=== PATIENT | male | born 1965 | race Caucasian/White ===

== ENCOUNTER 2017-04-15 01:37 | Outpatient (CLI) | payer OTHER, MEDICARE | END 2017-04-15 01:38 | disposition EMS.NT | LOC: EMS 01:37 | PROVIDERS: ATTEND Surgery | DX: R46.89 Other symptoms and signs involving appearance and behavior (principal) ==

== ENCOUNTER 2017-04-15 02:26 | Emergency (ER) | payer OTHER, MEDICARE ==
--- NOTE | 2017-04-15 02:37 | ED Physician Documentation ---
PD HPI MHE - Stated complaint Stated Complaint: MHE - History obtained from History obtained from: Patient, Police - History of Present Illness Primary symptom: Manic, Aggressive behavior Timing - onset: Today Contributing factors: Off meds Similar symptoms before: Work up / diagnostics, Treatment - Additional information Additional information: Patient is a 51 year old male brought in by police for agitation and altered mental status. According to police the patient and his are going through a divorce. The has been staying with a friend. When the came back today she said the patient was acting like a mad man. said she was worried and called the police. stated that the patient hasn't slept since new years. Patient reports that he was sleeping, taking a nap and then the police were called to his house. Upon initial evaluation in the emergency department patient is awake, alert and oriented. patient denies any suicidal or homicidal ideation. Patient is cooperative. Review of Systems Constitutional: denies: Fever, Chills Eyes: reports: Reviewed and negative Ears: reports: Reviewed and negative Nose: denies: Rhinorrhea / runny nose, Foreign Body Throat: denies: Sore throat Cardiac: denies: Chest pain / pressure, Palpitations Respiratory: reports: Cough GI: denies: Abdominal Pain, Nausea, Vomiting Neurologic: denies: Generalized weakness, Focal weakness, Numbness Psychiatric: denies: Depressed, Suicidal, Homicidal, Delusions PD PAST MEDICAL HISTORY - Past Medical History Cardiovascular: Hypertension Endocrine/Autoimmune: Type 2 diabetes Psych: ADD/ADHD - Past Surgical History Past Surgical History: Yes General: Cholecystectomy, Appendectomy - Present Medications Home Medications: Ambulatory Orders Medication Instructions Recorded Confirmed Furosemide [Lasix] 20 mg PO 12/07/12 12/07/12 Furosemide [Lasix] 20 mg PO DAILY #10 tablet 12/07/12 Indomethacin 25 mg PO 12/07/12 12/07/12 Insulin Aspart [Novolog] 15 unit SQ TIDACHS 12/07/12 12/07/12 Insulin Glargine,Hum.rec.anlog 75 unit SQ BID 12/07/12 12/07/12 [Lantus] Losartan [Cozaar] 25 mg PO 12/07/12 12/07/12 Methylphenidate [Daytrana] 1 each TD 12/07/12 12/07/12 Omeprazole [Prilosec] 40 mg PO 12/07/12 12/07/12 Potassium Chloride 10 meq PO DAILY #10 capsule.er 12/07/12 diltiaZEM [Cardizem] 30 mg PO ONCE 12/07/12 12/07/12 metFORMIN [Glucophage] 1,000 mg PO BID 12/07/12 12/07/12 - Allergies Allergies/Adverse Reactions: Allergies Allergy/AdvReac Type Severity Reaction Status Date / Time codeine [Codeine] Allergy Nausea Verified 04/15/17 02:42 - Social History Does the pt smoke?: No Smoking Status: Never smoker Does the pt drink ETOH?: Yes Does the pt have substance abuse?: No PD ED PE NORMAL - Vitals Vital signs reviewed: Yes - General General: Alert and oriented X 3 - HEENT HEENT: Atraumatic, PERRL - Neck Neck: Supple, no meningeal sign, No JVD - Cardiac Cardiac: RRR, No murmur - Abdomen Abdomen: Other (obese) - Neuro Neuro: Alert and oriented X 3, No motor deficit, No sensory deficit, Normal speech PD ED PE EXPANDED - HEENT HEENT: Dry mucous membranes - Psych Psych: No: Depressed, Suicidal, Homicidal, Tearful, Combative, Manic, Pressured speech Results - Vitals Vitals: Vital Signs - 24 hr 04/15/17 02:29 Temperature 35.7 C L Heart Rate 106 H Respiratory 18 Rate Blood Pressure 191/106 H O2 Saturation 97 Oxygen O2 Source Room air - Labs Labs: Laboratory Tests 04/15/17 04/15/17 04/15/17 02:51 02:51 02:51 WBC 15.7 H RBC 4.69 L Hgb 12.4 L Hct 37.6 L MCV 80.2 MCH 26.5 L MCHC 33.1 RDW 14.9 Plt Count 261 MPV 9.4 Neut # 12.3 H Lymph # 2.1 [place] # 1.0 Eos # 0.1 Baso # 0.1 Absolute Nucleated RBC 0.00 Nucleated RBC % 0.0 Sodium 133 L Potassium 3.5 Chloride 101 Carbon Dioxide 19 L Anion Gap 13.0 BUN 15 Creatinine 1.0 Estimated GFR (MDRD) 79 L Glucose 193 H Calcium 8.8 Total Bilirubin 0.9 AST 121 H ALT 48 Alkaline Phosphatase 86 Total Protein 8.2 Albumin 4.2 Globulin 4.0 Albumin/Globulin Ratio 1.1 Lipase 14 L TSH 1.38 Ethyl Alcohol < 5.0 PD MEDICAL DECISION MAKING - ED course Complexity details: reviewed old records, reviewed results, re-evaluated patient , considered differential, d/w patient ED course: Patient was seen and examined at bedside. Patient was awake, alert and oriented. patient denied any suicidal or homicidal ideation. Patient's labs were drawn. Patient fell asleep easily and was observed over night. In the morning patient continued to deny any suicidal or homicidal ideation. He was awake, alert and oriented and showed no signs of reina. Patient had no reason to be held and patient was stable for discharge with outpatient follow up. Departure - Departure Disposition: 01 Home, Self Care Clinical Impression: Psychiatric symptoms Condition: Stable Instructions: ED Stress React Follow-Up: primary,care provider [Other] - Tomorrow Comments: Your diagnostics today were within normal limits. Your symptoms are likely in part due to the extra stress in your life. It is important that you contact your doctor today and go to your appointment on the . You may return to the emergency department at any time for new, worsening or uncontrollable symptoms.
[2017-04-15 02:59] LABS: BASOPHILS # (AUTO) 0.1 10^3/uL (0.0-0.1); BASOPHILS % (AUTO) 0.6 %; EOSINOPHILS # (AUTO) 0.1 10^3/uL (0.0-0.7); EOSINOPHILS % (AUTO) 0.9 %; HGB - HEMOGLOBIN 12.4 g/dL (14.0-18.0); LYMPHOCYTES # (AUTO) 2.1 10^3/uL (1.5-3.5); LYMPHOCYTES % (AUTO) 13.1 %; MEAN CORPUSCULAR HEMOGLOBIN 26.5 pg (27.0-31.0); MEAN CORPUSCULAR HGB CONC 33.1 g/dL (32.0-36.0); MEAN CORPUSCULAR VOLUME 80.2 fL (80.0-94.0); MEAN PLATELET VOLUME 9.4 fL (7.4-11.4); MONOCYTES % (AUTO) 6.5 %; NEUTROPHILS # (AUTO) 12.3 10^3/uL (1.5-6.6); NEUTROPHILS % (AUTO) 78.9 %; PLT - PLATELET COUNT 261 10^3/uL (130-450); RED BLOOD COUNT 4.69 10^6/uL (4.70-6.10); RED CELL DISTRIBUTION WIDTH 14.9 % (12.0-15.0); WHITE BLOOD COUNT 15.7 x10^3/uL (4.8-10.8)
[2017-04-15 03:09] LABS: ALBUMIN 4.2 g/dL (3.2-5.5); ALBUMIN/GLOBULIN RATIO 1.1 (1.0-2.2); ALKALINE PHOSPHATASE 86 IU/L (42-121); ALT ALANINE AMINOTRANSFERASE 48 IU/L (10-60); AST ASPARTATE AMINOTRANSFERASE 121 IU/L (10-42); BILIRUBIN,TOTAL 0.9 mg/dL (0.2-1.0); BUN - BLOOD UREA NITROGEN 15 mg/dL (6-20); CALCIUM 8.8 mg/dL (8.5-10.3); CARBON DIOXIDE - CO2 19 mmol/L (21-32); CHLORIDE 101 mmol/L (101-111); GFR - MDRD 79 (>89); GLUCOSE 193 mg/dL (70-100); LIPASE 14 U/L (22-51); SODIUM 133 mmol/L (135-145); TOTAL PROTEIN 8.2 g/dL (6.7-8.2)
[2017-04-15 06:32] VITALS: BP 167/89
== END 2017-04-15 06:32 | disposition home or self-care (01) ==
LOC: ED 02:26
DX: F99 Mental disorder, not otherwise specified (principal); R45.1 Restlessness and agitation; R41.82 Altered mental status, unspecified; I10 Essential (primary) hypertension; E11.9 Type 2 diabetes mellitus without complications; Z79.4 Long term (current) use of insulin
CPT/HCPCS: 36415; 80053; 80320; 83690; 84443; 85025; 99283

== ENCOUNTER 2017-06-14 15:10 | Emergency (ER) | payer MEDICARE, OTHER ==
--- NOTE | 2017-06-14 15:29 | ED Physician Documentation ---
History of Present Illness - Stated complaint Stated Complaint: L SIDE PX - Chief complaint Chief Complaint: Abd Pain - History obtained from History obtained from: Patient - History of Present Illness Timing: Today Pain level max: 10 Pain level now: 10 Improved by: nothing Worsened by: nothing - Additonal information Additional information: L sided abd pain radiating to the groin. Feels similar to past stones. Has not taken anything for pain. No fever. No vomiting. States has a kidney stone every few years. Review of Systems Ten Systems: 10 systems reviewed and negative Constitutional: denies: Fever, Chills Cardiac: denies: Chest pain / pressure Respiratory: denies: Cough GI: reports: Nausea. denies: Vomiting, Diarrhea Skin: denies: Rash Musculoskeletal: denies: Neck pain Neurologic: denies: Headache PD PAST MEDICAL HISTORY - Past Medical History Past Medical History: Yes Cardiovascular: Hypertension Endocrine/Autoimmune: Type 2 diabetes Psych: ADD/ADHD - Past Surgical History Past Surgical History: Yes General: Cholecystectomy, Appendectomy - Present Medications Home Medications: Ambulatory Orders Medication Instructions Recorded Confirmed Furosemide [Lasix] 20 mg PO 12/07/12 12/07/12 Furosemide [Lasix] 20 mg PO DAILY #10 tablet 12/07/12 Indomethacin 25 mg PO 12/07/12 12/07/12 Insulin Aspart [Novolog] 15 unit SQ TIDACHS 12/07/12 12/07/12 Insulin Glargine,Hum.rec.anlog 75 unit SQ BID 12/07/12 12/07/12 [Lantus] Losartan [Cozaar] 25 mg PO 12/07/12 12/07/12 Methylphenidate [Daytrana] 1 each TD 12/07/12 12/07/12 Omeprazole [Prilosec] 40 mg PO 12/07/12 12/07/12 Potassium Chloride 10 meq PO DAILY #10 capsule.er 12/07/12 diltiaZEM [Cardizem] 30 mg PO ONCE 12/07/12 12/07/12 metFORMIN [Glucophage] 1,000 mg PO BID 12/07/12 12/07/12 - Allergies Allergies/Adverse Reactions: Allergies Allergy/AdvReac Type Severity Reaction Status Date / Time codeine [Codeine] Allergy Nausea Verified 04/15/17 02:42 - Social History Does the pt smoke?: No Smoking Status: Never smoker Does the pt drink ETOH?: Yes Does the pt have substance abuse?: No PD ED PE NORMAL - Vitals Vital signs reviewed: Yes - General General: Alert and oriented X 3, Well developed/nourished, Other (appears in significant pain.) - HEENT HEENT: PERRL, Moist mucous membranes - Neck Neck: Supple, no meningeal sign - Cardiac Cardiac: RRR, Strong equal pulses - Respiratory Respiratory: No respiratory distress, Clear bilaterally - Abdomen Abdomen: Soft, Non tender, Non distended - Back Back: No CVA TTP, No spinal TTP - Derm Derm: Warm and dry, No rash - Neuro Neuro: Alert and oriented X 3 - Psych Psych: Normal mood, Normal affect Results - Vitals Vitals: Vital Signs - 24 hr 06/14/17 06/14/17 15:16 18:11 Temperature 35.8 C L 37.3 C Heart Rate 101 H 73 Respiratory 22 16 Rate Blood Pressure 137/83 H 161/85 H O2 Saturation 97 99 Oxygen O2 Source Room air - Labs Labs: Microbiology 06/14/17 15:50 Urine Culture - Preliminary Urine,Clean Catch CULTURE IN PROGRESS. RESULTS TO FOLLOW. Laboratory Tests 06/14/17 06/14/17 06/14/17 15:50 15:55 15:55 WBC 16.2 H RBC 4.86 Hgb 13.2 L Hct 39.4 L MCV 81.1 MCH 27.1 MCHC 33.5 RDW 15.2 H Plt Count 318 MPV 8.8 Neut # 13.0 H Lymph # 2.3 [place] # 0.7 Eos # 0.1 Baso # 0.1 Absolute Nucleated RBC 0.00 Nucleated RBC % 0.0 Sodium 138 Potassium 3.8 Chloride 103 Carbon Dioxide 24 Anion Gap 11.0 BUN 9 Creatinine 0.9 Estimated GFR (MDRD) 89 Glucose 135 H Calcium 9.4 Total Bilirubin 0.5 AST 21 ALT 17 Alkaline Phosphatase 88 Total Protein 8.5 H Albumin 4.3 Globulin 4.2 Albumin/Globulin Ratio 1.0 Lipase 21 L Urine Color YELLOW Urine Clarity HAZY Urine pH 5.5 Ur Specific [place] >=1.030 H Urine Protein 30 H Urine Glucose (UA) NEGATIVE Urine Ketones TRACE Urine Occult Blood LARGE H Urine Nitrite NEGATIVE Urine Bilirubin NEGATIVE Urine Urobilinogen 0.2 (NORMAL) Ur Leukocyte Esterase TRACE H Urine RBC TNTC H Urine WBC 0-3 Ur Squamous Epith Cells NONE SEEN Urine Bacteria Rare Urine Mucus Moderate Strands Ur Microscopic Review INDICATED Urine Culture Comments INDICATED - Rads (name of study) CT abdomen pelvis Radiology: Prelim report reviewed, EMP read contemporaneously, See rad report ( Right mid renal calculus measures 4 mm, nonobstructing. Mild left hydronephrosis and hydroureter being caused by the ureterovesicular junction calculus measuring 5 x 4 mm, located more in the bladder side. Mild left sided colonic diverticulosis without evidence for acute diverticulitis.) PD MEDICAL DECISION MAKING - ED course Complexity details: reviewed results, re-evaluated patient, considered differential, d/w patient ED course: Patient presents to the emergency department with what sounds like a left-sided ureteral stone. Symptoms fully resolved in the emergency department to suspect that the stone is not passed into the bladder. No evidence of concomitant UTI. He is well-appearing, nontoxic. Afebrile. We will continue supportive care and follow-up with his doctor. No evidence of sepsis. He does have a left- sided UVJ stone on CT scan, but pain resolved after the scan. Patient counseled regarding signs and symptoms for which I believe and urgent re- evaluation would be necessary. Patient with good understanding of and agreement to plan and is comfortable going home at this time This document was made in part using voice recognition software. While efforts are made to proofread this document, sound alike and grammatical errors may occur. Departure - Departure Disposition: 01 Home, Self Care Clinical Impression: Ureteral stone Condition: Good Instructions: ED Stone Renal Passed Follow-Up: your,doctor as needed [Other] Comments: You appear to have passed a kidney stone today. Return if you worsen. Discharge Date/Time: 06/14/17 18:14
[2017-06-14] MEDS ORDERED: LIDOCAINE-MPF 2% 10 ML in SODIUM CHLORIDE 0.9% 50 ML IV STA (15:52)
[2017-06-14] MEDS ORDERED: KETOROLAC 60 MG/2 ML VIAL IVP STA (15:52)
[2017-06-14] MEDS ORDERED: ONDANSETRON 4 MG/2 ML VIAL IVP STA (15:54)
[2017-06-14] MEDS ORDERED: SODIUM CHLORIDE 0.9% 1,000 ML IV ONE (15:54)
[2017-06-14 16:02] LABS: BASOPHILS # (AUTO) 0.1 10^3/uL (0.0-0.1); BASOPHILS % (AUTO) 0.6 %; EOSINOPHILS # (AUTO) 0.1 10^3/uL (0.0-0.7); EOSINOPHILS % (AUTO) 0.7 %; HGB - HEMOGLOBIN 13.2 g/dL (14.0-18.0); LYMPHOCYTES # (AUTO) 2.3 10^3/uL (1.5-3.5); LYMPHOCYTES % (AUTO) 14.2 %; MEAN CORPUSCULAR HEMOGLOBIN 27.1 pg (27.0-31.0); MEAN CORPUSCULAR HGB CONC 33.5 g/dL (32.0-36.0); MEAN CORPUSCULAR VOLUME 81.1 fL (80.0-94.0); MEAN PLATELET VOLUME 8.8 fL (7.4-11.4); MONOCYTES # (AUTO) 0.7 10^3/uL (0.0-1.0); MONOCYTES % (AUTO) 4.1 %; NEUTROPHILS % (AUTO) 80.4 %; PLT - PLATELET COUNT 318 10^3/uL (130-450); RED BLOOD COUNT 4.86 10^6/uL (4.70-6.10); RED CELL DISTRIBUTION WIDTH 15.2 % (12.0-15.0); WHITE BLOOD COUNT 16.2 x10^3/uL (4.8-10.8)
[2017-06-14 16:08] LABS: BILIRUBIN,URINE NEGATIVE (NEGATIVE); GLUCOSE, URINE (UA) NEGATIVE (NEGATIVE); KETONES,URINE (UA) TRACE mg/dL (NEGATIVE); LEUKOCYTE ESTERASE, URINE TRACE (NEGATIVE); NITRITE,URINE NEGATIVE (NEGATIVE); OCCULT BLOOD,URINE LARGE (NEGATIVE); PH,URINE 5.5 PH (5.0-7.5); PROTEIN,URINE 30 mg/dL (NEGATIVE); UROBILINOGEN,URINE 0.2 (NORMAL) E.U./dL (NORMAL)
[2017-06-14 16:10] LABS: BACTERIA,URINE Rare /HPF (None Seen); CLARITY,URINE HAZY (CLEAR); MUCUS,URINE Moderate Strands; RBC,URINE TNTC /HPF (0-5); SQUAMOUS EPITHELIAL CELL,UR NONE SEEN (<= Few)
[2017-06-14] MEDS ORDERED: IOPAMIDOL-300 100 ML VIAL ONE (16:16)
[2017-06-14 16:17] LABS: ALBUMIN 4.3 g/dL (3.2-5.5); BILIRUBIN,TOTAL 0.5 mg/dL (0.2-1.0); CALCIUM 9.4 mg/dL (8.5-10.3); CREATININE 0.9 mg/dL (0.6-1.2); TOTAL PROTEIN 8.5 g/dL (6.7-8.2)
[2017-06-14] MEDS ORDERED: IOPAMIDOL-300 100 ML VIAL IVP ONE (17:08)
--- NOTE | 2017-06-14 17:46 | CT Preliminary Report ---
Exam: CT ABDOMEN/PELVIS W/ IMPRESSION: 1. Right mid renal calculus measures 4 mm, nonobstructing. Mild left hydronephrosis and hydroureter being caused by a ureterovesicular junction calculus measuring 5 x 4 mm, located more in the bladder side. 2. Mild left-sided colonic diverticulosis without evidence for acute diverticulitis. 3. Otherwise, as above. [facility] SITE ID: [id number]
--- NOTE | 2017-06-14 17:46 | CT Report ---
EXAM: CT ABDOMEN AND PELVIS EXAM DATE: 06/14/2017 05:16 PM. CLINICAL HISTORY: Left flank pain. COMPARISONS: CT abdomen pelvis 12/23/2017. TECHNIQUE: Routine helical CT imaging was performed through the abdomen and pelvis. IV contrast: 100M L ISOVUE 300. Enteric contrast: No. Reconstructions: Coronal and sagittal. In accordance with CT protocol optimization, one or more of the following dose reduction techniques w ere utilized for this exam: automated exposure control, adjustment of mA and/or KV based on patient s ize, or use of iterative reconstructive technique. FINDINGS: Lung bases: No acute findings. Liver: Focal calcification at the inferior edge of the right hepatic lobe measuring 8 mm. Gallbladder: Surgically removed. Bile ducts: Normal Pancreas: Normal. Spleen: Normal. Adrenals: Normal. Kidneys: Right mid renal calculus measures 4 mm, nonobstructing. Mild left hydronephrosis and hydrour eter being caused by a ureterovesicular junction calculus measuring 5 x 4 mm, located more in the analilia dder side. Bowel: Normal appendix. Mild left-sided colonic diverticulosis without evidence for acute diverticuli tis. No acute bowel findings are seen. No free fluid or free air. Pelvis: See below. The bladder is decompressed. Remaining pelvic organs appear unremarkable. Bones: No acute bone findings. Vascular structures: No acute findings. IMPRESSION: 1. Right mid renal calculus measures 4 mm, nonobstructing. Mild left hydronephrosis and hydroureter being caused by a ureterovesicular junction calculus measuring 5 x 4 mm, located more in the bladder side. 2. Mild left-sided colonic diverticulosis without evidence for acute diverticulitis. 3. Otherwise, as above. [facility] Referring Provider Line: [phone] SITE ID: [id number]
[2017-06-14 18:12] VITALS: BP 161/85
== END 2017-06-14 18:14 | disposition home or self-care (01) ==
LOC: ED 15:10
DX: N20.1 Calculus of ureter (principal); I10 Essential (primary) hypertension; E11.9 Type 2 diabetes mellitus without complications
CPT/HCPCS: 36415; 74177; 80053; 81001; 83690; 85025; 87086; 96365; 96375; 99283; 99284; J7040; Q9967; 81003

== ENCOUNTER 2018-02-19 18:45 | Emergency (ER) | payer OTHER ==
[2018-02-19 19:50] LABS: BASOPHILS # (AUTO) 0.1 10^3/uL (0.0-0.1); BASOPHILS % (AUTO) 0.9 %; EOSINOPHILS # (AUTO) 0.1 10^3/uL (0.0-0.7); EOSINOPHILS % (AUTO) 0.9 %; HGB - HEMOGLOBIN 13.2 g/dL (14.0-18.0); LYMPHOCYTES # (AUTO) 2.2 10^3/uL (1.5-3.5); LYMPHOCYTES % (AUTO) 14.5 %; MEAN CORPUSCULAR HEMOGLOBIN 27.8 pg (27.0-31.0); MEAN CORPUSCULAR HGB CONC 34.3 g/dL (32.0-36.0); MEAN CORPUSCULAR VOLUME 81.1 fL (80.0-94.0); MEAN PLATELET VOLUME 8.8 fL (7.4-11.4); MONOCYTES # (AUTO) 0.8 10^3/uL (0.0-1.0); MONOCYTES % (AUTO) 5.1 %; NEUTROPHILS # (AUTO) 11.8 10^3/uL (1.5-6.6); NEUTROPHILS % (AUTO) 78.6 %; PLT - PLATELET COUNT 325 10^3/uL (130-450); RED BLOOD COUNT 4.73 10^6/uL (4.70-6.10); RED CELL DISTRIBUTION WIDTH 14.6 % (12.0-15.0)
[2018-02-19 20:03] LABS: BILIRUBIN,TOTAL 0.7 mg/dL (0.2-1.0); CREATININE 0.9 mg/dL (0.6-1.2)
[2018-02-19 20:12] LABS: BILIRUBIN,URINE NEGATIVE (NEGATIVE); GLUCOSE, URINE (UA) NEGATIVE (NEGATIVE); KETONES,URINE (UA) NEGATIVE (NEGATIVE); LEUKOCYTE ESTERASE, URINE NEGATIVE (NEGATIVE); NITRITE,URINE NEGATIVE (NEGATIVE); OCCULT BLOOD,URINE LARGE (NEGATIVE); PROTEIN,URINE 100 mg/dL (NEGATIVE); UROBILINOGEN,URINE 0.2 (NORMAL) E.U./dL (NORMAL)
[2018-02-19 20:18] LABS: CLARITY,URINE CLOUDY (CLEAR)
--- NOTE | 2018-02-19 20:24 | ED Physician Documentation ---
History of Present Illness - Stated complaint Stated Complaint: LOW BLOOD SUGAR/BK PX/VOMIT - Chief complaint Chief Complaint: Abd Pain - Additonal information Additional information: hx from pt 52 male R flank to RLQ pain today getting worse and migrating same as prior renal colic NV no diarrhea no gross hematuria no fever sp appy sandee Review of Systems Constitutional: denies: Fever, Chills GI: reports: Abdominal Pain, Nausea, Vomiting. denies: Diarrhea Musculoskeletal: reports: Back pain Immunocompromised: denies: Immunocompromised PD PAST MEDICAL HISTORY - Past Medical History Cardiovascular: Hypertension Endocrine/Autoimmune: Type 2 diabetes Psych: ADD/ADHD - Past Surgical History Past Surgical History: Yes General: Cholecystectomy, Appendectomy - Present Medications Home Medications: Ambulatory Orders Medication Instructions Recorded Confirmed Furosemide [Lasix] 20 mg PO 12/07/12 12/07/12 Furosemide [Lasix] 20 mg PO DAILY #10 tablet 12/07/12 Indomethacin 25 mg PO 12/07/12 12/07/12 Insulin Aspart [Novolog] 15 unit SQ TIDACHS 12/07/12 12/07/12 Insulin Glargine,Hum.rec.anlog 75 unit SQ BID 12/07/12 12/07/12 [Lantus] Losartan [Cozaar] 25 mg PO 12/07/12 12/07/12 Methylphenidate [Daytrana] 1 each TD 12/07/12 12/07/12 Omeprazole [Prilosec] 40 mg PO 12/07/12 12/07/12 Potassium Chloride 10 meq PO DAILY #10 capsule.er 12/07/12 diltiaZEM [Cardizem] 30 mg PO ONCE 12/07/12 12/07/12 metFORMIN [Glucophage] 1,000 mg PO BID 12/07/12 12/07/12 Hydrocodone/Acetaminophen 1 each PO Q6H PRN #15 tablet 02/19/18 [Hydrocodon-Acetaminophen 5-325] Ibuprofen [Motrin] 400 mg PO Q6H #30 tablet 02/19/18 Ondansetron Odt [Zofran] 4 mg TL Q6H PRN #10 tablet 02/19/18 Tamsulosin HCl [Flomax] 0.4 mg PO DAILY #7 cap 02/19/18 - Allergies Allergies/Adverse Reactions: Allergies Allergy/AdvReac Type Severity Reaction Status Date / Time codeine [Codeine] Allergy Nausea Verified 02/19/18 19:08 - Social History Does the pt smoke?: No Smoking Status: Never smoker Does the pt drink ETOH?: Yes Does the pt have substance abuse?: No PD ED PE NORMAL - Vitals Vital signs reviewed: Yes - Neck Neck: Supple, no meningeal sign - Cardiac Cardiac: RRR - Respiratory Respiratory: No respiratory distress - Abdomen Abdomen: Soft, Non tender, Other (in pain palp does not change) - Back Back: No CVA TTP (in pain, palp does not change) - Neuro Neuro: Alert and oriented X 3 Results - Vitals Vitals: Vital Signs - 24 hr 02/19/18 02/19/18 19:06 21:47 Heart Rate 68 52 L Respiratory 20 17 Rate Blood Pressure 175/93 H 150/91 H O2 Saturation 100 96 Oxygen O2 Source Room air - Labs Labs: Laboratory Tests 02/19/18 02/19/18 02/19/18 19:05 19:44 19:44 WBC 15.0 H RBC 4.73 Hgb 13.2 L Hct 38.4 L MCV 81.1 MCH 27.8 MCHC 34.3 RDW 14.6 Plt Count 325 MPV 8.8 Neut # (Auto) 11.8 H Lymph # (Auto) 2.2 [place] # (Auto) 0.8 Eos # (Auto) 0.1 Baso # (Auto) 0.1 Absolute Nucleated RBC 0.00 Nucleated RBC % 0.0 Sodium 138 Potassium 3.4 L Chloride 103 Carbon Dioxide 24 Anion Gap 11.0 BUN 15 Creatinine 0.9 Estimated GFR (MDRD) 89 Glucose 132 H POC Whole Bld Glucose 129 H Calcium 9.0 Total Bilirubin 0.7 AST 22 ALT 15 Alkaline Phosphatase 73 Total Protein 8.0 Albumin 4.0 Globulin 4.0 Albumin/Globulin Ratio 1.0 Lipase 29 Urine Color Urine Clarity Urine pH Ur Specific [place] Urine Protein Urine Glucose (UA) Urine Ketones Urine Occult Blood Urine Nitrite Urine Bilirubin Urine Urobilinogen Ur Leukocyte Esterase Urine RBC Urine WBC Ur Squamous Epith Cells Urine Bacteria Ur Microscopic Review Urine Culture Comments 02/19/18 20:04 WBC RBC Hgb Hct MCV MCH MCHC RDW Plt Count MPV Neut # (Auto) Lymph # (Auto) [place] # (Auto) Eos # (Auto) Baso # (Auto) Absolute Nucleated RBC Nucleated RBC % Sodium Potassium Chloride Carbon Dioxide Anion Gap BUN Creatinine Estimated GFR (MDRD) Glucose POC Whole Bld Glucose Calcium Total Bilirubin AST ALT Alkaline Phosphatase Total Protein Albumin Globulin Albumin/Globulin Ratio Lipase Urine Color YELLOW Urine Clarity CLOUDY Urine pH 6.0 Ur Specific [place] >=1.030 H Urine Protein 100 H Urine Glucose (UA) NEGATIVE Urine Ketones NEGATIVE Urine Occult Blood LARGE H Urine Nitrite NEGATIVE Urine Bilirubin NEGATIVE Urine Urobilinogen 0.2 (NORMAL) Ur Leukocyte Esterase NEGATIVE Urine RBC TNTC H Urine WBC 0-3 Ur Squamous Epith Cells NONE SEEN Urine Bacteria Rare Ur Microscopic Review INDICATED Urine Culture Comments NOT INDICATED - Rads (name of study) CTAP Radiology: See rad report (6 X 4 X 6 mm proximal R ureteral stone with mild hydro and some stranding) PD MEDICAL DECISION MAKING - ED course ED course: 6 mm stone no infection if pain can be controlled will dc Departure - Departure Disposition: 01 Home, Self Care Clinical Impression: Renal colic on right side Condition: Good Instructions: ED Stone Renal W Colic Prescriptions: Ibuprofen [Motrin] 400 mg PO Q6H #30 tablet Ondansetron Odt [Zofran] 4 mg TL Q6H PRN #10 tablet PRN Reason: Nausea / Vomiting oxyCODONE [Roxicodone] 5 mg PO Q6H PRN #12 tablet PRN Reason: Severe Pain Tamsulosin HCl [Flomax] 0.4 mg PO DAILY #7 cap Comments: You have a large R sided kidney stone that is passing Thankfully there is no associated infection. Because the pain is controlled, it is OK for you to go home. I have prescribed medications for pain and vomiting. Please drink lots of fluids And call the [facility] to [facility] close follow up with a [facility]rologist in case the stone is too big to pass Forms: Activity restrictions
[2018-02-19 20:29] LABS: BACTERIA,URINE Rare /HPF (None Seen); RBC,URINE TNTC /HPF (0-5); SQUAMOUS EPITHELIAL CELL,UR NONE SEEN (<= Few)
[2018-02-19] MEDS: KETOROLAC 60 MG/2 ML VIAL IVP STA (21:01)
[2018-02-19] MEDS: ONDANSETRON 4 MG/2 ML VIAL IVP STA (21:01)
[2018-02-19] MEDS: SODIUM CHLORIDE 0.9% 1,000 ML IV ONE (21:02)
--- NOTE | 2018-02-19 21:41 | CT Report ---
Reason: R flank to RLQ pain c/w renal colic Procedure Date: 02/19/2018 Accession Number: [id number] / [id number] Procedure: CT - Abdomen/Pelvis W/O CPT Code: FULL RESULT: EXAM: CT ABDOMEN AND PELVIS (CT KUB) EXAM DATE: 02/19/2018 09:12 PM. CLINICAL HISTORY: R flank to RLQ pain c/w renal colic. COMPARISONS: ABDOMEN/PELVIS W/ 06/14/2017 4:54 PM. TECHNIQUE: Routine axial helical CT imaging was performed through the abdomen and pelvis without IV contrast. Reconstructions: Coronal and sagittal. In accordance with CT protocol optimization, one or more of the following dose reduction techniques were utilized for this exam: automated exposure control, adjustment of mA and/or KV based on patient size, or use of iterative reconstructive technique. FINDINGS: Lung Bases: Unremarkable. Right Kidney/Ureter: There is a 6 x 4 x 6 mm proximal right ureteral calculus at the L5 level. There are no intrarenal calculi. There is mild right hydronephrosis and proximal ureter. There is asymmetric moderate right perinephric and proximal periureteral fat stranding. Left Kidney/Ureter: There is a 1 mm mid pole left renal calculus. There is no ureteral calculus. There is no hydronephrosis or hydroureter. Other Solid Organs: Noncontrast images of the solid organs are grossly unremarkable. Gallbladder/Bile Ducts: Gallbladder surgically absent. No ductal dilatation. 9 mm spilled gallstone in Morison's pouch. Peritoneal Cavity: Unopacified stomach and small bowel are nondistended. The appendix is not clearly identified. There is minimal formed stool in the colon. There is mild descending and sigmoid colon diverticulosis. There is no focal pericolonic fat stranding. There is no lymphadenopathy, ascites, or pneumoperitoneum. Pelvic Organs: Small volume bladder without stones. Prostate gland and seminal vesicles are unremarkable. Vasculature: Small bilateral pelvic phleboliths. Otherwise unremarkable. Other: Abdominal wall unremarkable. Mild bilateral L5-S1 facet osteoarthritis. IMPRESSION: 1. Mildly obstructing 6 x 4 x 6 mm proximal right ureteral calculus. Plain abdominal radiograph would be of value to determine the radiopacity of this stone for follow-up. 2. Nonobstructing 1 mm mid pole left renal calculus. [facility]
[2018-02-19 23:12] VITALS: BP 129/72
[2018-02-19] MEDS: HYDROcod/ACET 5/325 Prepack 4 PO STA (23:29)
[2018-02-19] MEDS: ONDANSETRON ODT 4 MG Prepack 2 TL PRN (23:32)
== END 2018-02-19 23:34 | disposition home or self-care (01) ==
LOC: ED 18:45
DX: N13.2 Hydronephrosis with renal and ureteral calculous obstruction (principal); E11.9 Type 2 diabetes mellitus without complications; I10 Essential (primary) hypertension; Z79.4 Long term (current) use of insulin
CPT/HCPCS: 36415; 74176; 80053; 81001; 81003; 83690; 85025; 87086; 96361; 96374; 99283

== ENCOUNTER 2018-07-09 21:48 | Outpatient (CLI) | payer OTHER | END 2018-07-09 21:49 | disposition EMS.NT | LOC: EMS 21:48 | PROVIDERS: ATTEND Surgery | DX: Z03.89 Encounter for observation for other suspected diseases and conditions ruled out (principal) ==

== ENCOUNTER 2018-08-04 16:47 | Outpatient (CLI) | payer OTHER | END 2018-08-04 16:48 | disposition EMS.NT | LOC: EMS 16:47 | PROVIDERS: ATTEND Surgery | DX: S00.212A Abrasion of left eyelid and periocular area, initial encounter (principal); Y35.811A Legal intervention involving manhandling, law enforcement official injured, initial encounter; T75.4XXA Electrocution, initial encounter ==

== ENCOUNTER 2021-02-01 08:59 | Outpatient (CLI) | payer OTHER ==
[2021-02-01 09:08] LABS: BASOPHILS % (AUTO) 0.3 %; EOSINOPHILS # (AUTO) 0.2 10^3/uL (0.0-0.7); HCT - HEMATOCRIT 42.9 % (42.0-52.0); LYMPHOCYTES # (AUTO) 2.2 10^3/uL (1.5-3.5); LYMPHOCYTES % (AUTO) 21.4 %; MEAN CORPUSCULAR HEMOGLOBIN 28.1 pg (27.0-31.0); MEAN CORPUSCULAR HGB CONC 32.6 g/dL (32.0-36.0); MEAN PLATELET VOLUME 11.5 fL (7.4-11.4); MONOCYTES # (AUTO) 0.6 10^3/uL (0.0-1.0); NEUTROPHILS # (AUTO) 7.2 10^3/uL (1.5-6.6); PLT - PLATELET COUNT 256 10^3/uL (130-450); RED BLOOD COUNT 4.99 10^6/uL (4.70-6.10); RED CELL DISTRIBUTION WIDTH 13.3 % (12.0-15.0); WHITE BLOOD COUNT 10.3 x10^3/uL (4.8-10.8)
[2021-02-01 09:37] LABS: ALBUMIN 3.7 g/dL (3.2-5.5); ALBUMIN/GLOBULIN RATIO 1.1 (1.0-2.2); BILIRUBIN,TOTAL 0.6 mg/dL (0.2-1.0); CALCIUM 8.8 mg/dL (8.5-10.3); CREATININE 0.7 mg/dL (0.6-1.2); POTASSIUM 4.1 mmol/L (3.5-5.0); TOTAL PROTEIN 7.2 g/dL (6.7-8.2)
[2021-02-01 11:53] LABS: ESTIMATED AVERAGE GLUCOSE 272 mg/dL (70-100); HEMOGLOBIN A1c% 11.1 % (4.27-6.07)
== END 2021-02-01 09:00 | disposition home or self-care (01) ==
LOC: LAB 08:59 → LAB.R 09:00
PROVIDERS: ATTEND Registered Nurse
DX: R79.89 Other specified abnormal findings of blood chemistry (principal); R68.89 Other general symptoms and signs; R73.09 Other abnormal glucose; R94.6 Abnormal results of thyroid function studies
CPT/HCPCS: 36415; 80053; 83036; 84443; 85025

== ENCOUNTER 2021-09-18 12:33 | Outpatient (CLI) | payer OTHER ==
[2021-09-19 07:31] VITALS: BP 126/77
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
== END 2021-09-18 12:34 | disposition home or self-care (01) ==
LOC: SC 12:33
PROVIDERS: ATTEND Internal Medicine Pulmonary Disease
DX: G47.33 Obstructive sleep apnea (adult) (pediatric) (principal); E66.9 Obesity, unspecified; Z68.38 Body mass index [BMI] 38.0-38.9, adult
CPT/HCPCS: 99202; 99212

== ENCOUNTER 2021-10-24 12:51 | Outpatient (CLI) | payer OTHER ==
[2021-10-24 15:02] VITALS: BP 111/77
--- NOTE | 2021-10-24 15:02 | SLEEP CARE CONSULTATION ---
Information from patient questionnaire entered by Ricky Saeed MA. I have reviewed and concur with the information entered by Ricky Saeed MA. This document represents the service I personally performed and the decisions made by , Tena Earl ARNP. History of Present Illness Service Date and Time: 10/24/2021 1251 Initial Clayton Sleepiness Scale score: 14 Current Clayton Sleepiness Scale score: 11 (10/24/2021) Additional HPI information: ARNOLDO TAPIA returns for follow up and results of the recently performed polysomnography. The patient was informed of the following findings: No significant sleep disordered breathing with an average AHI of 4.1 and donna oxygen saturation of 86%. He only spent 4 minutes supine and his supine AHI was elevated at 14.0. He had moderate snoring and severe periodic leg movements of sleep. I explained the pathophysiology behind obstructive sleep apnea. Patient does not have sleep apnea and was advised how weight gain could increase the risk of developing sleep apnea in the future. I strongly encouraged the patient to lose weight. Patient does not have significant sleep disordered breathing on this test but has elevated AHI in supine position. He did have 14 implants in 4 minut es that he slept supine. Patient has moderate snoring. Patient counseled not drink alcohol less than 4 hours before bedtime as it can increase snoring and apnea. Patient was cautioned about risks of drowsy driving until sleepiness symptoms resolve. Sleep Study - Results Type of Sleep Study: Polysomnography (F/U POLY 09/20/2021 [facility],) Allergies and Home Medications Home medication list reviewed: Yes (increasing Ozempic dose) Allergy and home medication list: Allergies codeine [Codeine] Allergy (Verified 02/19/18 19:08) Nausea Review of Systems Review of systems same as previous: Yes (no changes) Physical Exam Vital signs obtained and entered by: Calos SAEED CMA AAMW Blood Pressure: 111/77 (RIGHT, PULSE 78, RESP 20, ) Heart Rate: 76 O2 Saturation: 98 (CLOTH MASK) Height: 6 ft Weight: 280 lb Weight change since last visit: LOSE TAKING SHOTS OF 2MG QWEEKLY Body Mass Index: 38.0 BMI Classification: Obese Impression and Plan 1. Suspected Obstructive Sleep Apnea-Hypopnea Syndrome, as previously diagnosed and as suggested by a history of loud and irregular snoring, observed cessation of breath while asleep, gasping or choking in sleep, frequent awakening during the night, unrefreshed sleep, and excessive daytime sleepiness. Patient did not sleep adequately supine during his sleep study. I want him to repeat the study and sleep normally and on his back so that we might get a more accurate measurement of his sleep apnea. He previously was moderate to severe sleep apnea. He has lost some weight since his last test but is still significantly overweight. I recommend proceeding to polysomnography to confirm the diagnosis and to assess severity. The pathophysiology of obstructive sleep apnea-hypopnea syndrome was discussed with the patient and health risks of cardiovascular and cerebrovascular disease if not treated. Risks of drowsy driving discussed in detail and patient advised to avoid long distance driving and to snout puller at the first sign of drowsiness. Patient agreed to plan. * Schedule polysomnography/HST * Avoid long distance driving or driving when feeling sleepy. * Avoid alcohol, sedative and muscle relaxant around bedtime. * Attempt to lose weight. * Review instructions provided by trained office staff on how to prepare for the sleep study. * Return for follow-up after sleep study completed. Counseling Topics: Weight loss health impact Visit Type: In Office Time Spent with Patient (minutes): 20 Provider Statement: I spent 100% of the Face to Face Visit with the patient with greater than 50% spent counseling the patient and coordination of care.
== END 2021-10-24 12:52 | disposition home or self-care (01) ==
LOC: SC 12:51
PROVIDERS: ATTEND Nurse Practitioner Family
DX: G47.33 Obstructive sleep apnea (adult) (pediatric) (principal); E66.9 Obesity, unspecified; Z68.38 Body mass index [BMI] 38.0-38.9, adult
CPT/HCPCS: 99212; 99213

== ENCOUNTER 2021-10-25 07:57 | Outpatient (CLI) | payer OTHER | END 2021-10-25 07:58 | disposition home or self-care (01) | LOC: SC 07:57 | PROVIDERS: ATTEND Nurse Practitioner Family | DX: G47.33 Obstructive sleep apnea (adult) (pediatric) (principal) | CPT/HCPCS: 95806 ==

== ENCOUNTER 2021-11-02 14:55 | Outpatient (CLI) | payer OTHER ==
[2021-11-02 15:44] VITALS: BP 132/78
--- NOTE | 2021-11-02 15:44 | SLEEP CARE CONSULTATION ---
Information from patient questionnaire entered by Ricky Saeed MA. I have reviewed and concur with the information entered by Ricky Saeed MA. This document represents the service I personally performed and the decisions made by , Tena Earl ARNP. History of Present Illness Service Date and Time: 11/02/2021 7078 Initial Heber Sleepiness Scale score: 14 Current Heber Sleepiness Scale score: 10 (11/02/2021) Additional HPI information: ARNOLDO TAPIA returns for follow up and results of the recently performed home sleep study. I explained the pathophysiology behind obstructive sleep apnea. We then spent quite a bit of time discussing different treatment options. For mild obstructive sleep apnea, surgery and oral appliance are alternatives to nasal CPAP therapy but in moderate or severe cases, nasal CPAP is the most effective and reliable treatment. Because apnea is primarily in supine position, then positional management therapy could be effective. Methods discussed such as positioning with pillows to prevent supine sleep. I reviewed the impact of weight changes on sleep apnea and strongly recommended losing weight. Patient has been on a BIPAP in the past with pressure set at IPAP 25 cmH2O, EPAP 16 cmH2O and residual AHI of 3.4. Patient would like to continue BIPAP therapy. I was able to see a download from his old [employer] machine (2013). Patient does not drink alcohol. Patient was cautioned about risks of drowsy driving until sleepiness symptoms resolve. Sleep Study - Results Type of Sleep Study: Home sleep study (F/U POLY 09/20/2021 [facility], F/U HST 10/27/2021 [facility]) Polysomnography/Home Sleep Study results: Physician Impression: The quality of the study is good. The length of the study is adequate (> 240 minutes). Please also see the tabulated and graphic data. 1. Obstructive Sleep Apnea-Hypopnea (ICD-10 G47.33), mild, with an AHI of 10.6/hr and donna SaO2 of 87%. During the study, the patient had 23 apneas (23 obstructive, 0 central, 0 mixed) and 28 hypopneas. The longest episode lasted 80.0 seconds. The respiratory events occurred more frequently during supine sleep (supine AHI was 20.7 and non-supine, 5.16). 2. Hypoxemia (ICD-10 R09.02), mild, with the lowest oxygen saturation of 87 % and 2.0 minutes with SaO2 under 90%. Baseline oxygen saturation was normal (Average oxygen saturation was 94%). Allergies and Home Medications Known drug allergies: Yes (CODEINE) Home medication list reviewed: Yes (Ozempic increase to 2 injections a week, at same time) Allergy and home medication list: Allergies codeine [Codeine] Allergy (Verified 02/19/18 19:08) Nausea Review of Systems Review of systems same as previous: Yes (no changes) Physical Exam Vital signs obtained and entered by: Calos SAEED CMA BARRETT Blood Pressure: 132/78 (RESP 22, PULSE 98, RIGHT) Heart Rate: 99 O2 Saturation: 98 Height: 6 ft Weight: 280 lb (CLOTHES) Body Mass Index: 38.0 BMI Classification: Obese Impression and Plan 1. Obstructive Sleep Apnea-Hypopnea Syndrome, mild, with lowest oxygen saturation of 87%. Obviously this is the cause of the patients symptoms of u nrefreshed sleep, and excessive daytime sleepiness. Positive pressure therapy could benefit hypertension, diabetes and attention deficit. As mentioned above, the patient will be started back on nasal autoBIPAP therapy with pressure set at IPAP 25 cmH2O and EPAP 16 cmH2O cmH2O. Compliance guidelines also reviewed. A copy of compliance guidelines will be given for reference at check out. Because the apnea is more severe supine, I instructed to avoid sleeping supine using pillow positioning until able to start BIPAP use. 2. Hypoxemia, mild, with the lowest oxygen saturation of 87 % and 2.0 minutes with SaO2 under 90%. His baseline oxygen saturation was normal with an average oxygen saturation was 94%. * Restart auto BIPAP therapy, pressure at 4-15 cm H2O. * Attempt to lose weight. * Avoid alcohol consumption near bedtime. * Avoid supine sleep until using BIPAP. * The patient is again cautioned about driving until sleepiness completely resolves. * Return one month after BIPAP obtained. I will assess response to therapy and compliance at that time. Counseling Topics: Weight loss health impact Visit Type: In Office Time Spent with Patient (minutes): 20 Provider Statement: I spent 100% of the Face to Face Visit with the patient with greater than 50% spent counseling the patient and coordination of care.
== END 2021-11-02 14:56 | disposition home or self-care (01) ==
LOC: SC 14:55
PROVIDERS: ATTEND Nurse Practitioner Family
DX: G47.33 Obstructive sleep apnea (adult) (pediatric) (principal); R09.02 Hypoxemia; E66.9 Obesity, unspecified; Z68.38 Body mass index [BMI] 38.0-38.9, adult
CPT/HCPCS: 99212; 99213

== ENCOUNTER 2022-03-05 15:38 | Emergency (ER) | payer OTHER ==
[2022-03-05 15:43] VITALS: BP 116/81
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
--- NOTE | 2022-03-05 16:36 | XRAY Report ---
PROCEDURE: Wrist 3 View RT INDICATIONS: pain/swelling/injury TECHNIQUE: 3 views of the wrist were acquired. COMPARISON: None FINDINGS: Bones: No displaced fracture. No dislocation. Soft tissues: No suspicious calcifications. IMPRESSION: No acute radiographic abnormality. If there is high concern for occult injury, consider repeat radiog sacha or cross-sectional imaging. Reviewed by: Michael Chris MD on 03/05/2022 4:35 PM [facility] Approved by: Michael Chris MD on 03/05/2022 4:35 PM [facility] Station ID: [id number]
--- NOTE | 2022-03-05 16:39 | XRAY Report ---
PROCEDURE: Hand 3 View RT INDICATIONS: pain/swelling/injury TECHNIQUE: 3 views of the hand(s) acquired. COMPARISON: None FINDINGS: Bones: Mild scattered arthrosis. No displaced fracture or dislocation. Soft tissues: No suspicious calcifications. Impression: No acute radiographic abnormality. If there is high concern for occult injury, consider repeat radiog sacha or cross-sectional imaging. Reviewed by: Michael Chris MD on 03/05/2022 4:38 PM PST Approved by: Michael Chris MD on 03/05/2022 4:38 PM PST Station ID: [id number]
== END 2022-03-05 16:15 | disposition home or self-care (01) ==
LOC: ED 15:38
DX: S60.221A Contusion of right hand, initial encounter (principal); Y04.8XXA Assault by other bodily force, initial encounter
CPT/HCPCS: 99282; 99283

== ENCOUNTER 2023-03-13 13:33 | Outpatient (CLI) | payer OTHER | END 2023-03-13 13:34 | disposition critical access hospital (66) | LOC: EMS 13:33 | DX: Z04.6 Encounter for general psychiatric examination, requested by authority (principal); R46.89 Other symptoms and signs involving appearance and behavior; S21.139A Puncture wound without foreign body of unspecified front wall of thorax without penetration into thoracic cavity, initial encounter; S31.141A Puncture wound of abdominal wall with foreign body, left upper quadrant without penetration into peritoneal cavity, initial encounter; S31.040A Puncture wound with foreign body of lower back and pelvis without penetration into retroperitoneum, initial encounter; S50.812A Abrasion of left forearm, initial encounter; S50.811A Abrasion of right forearm, initial encounter; S50.312A Abrasion of left elbow, initial encounter; S50.311A Abrasion of right elbow, initial encounter; S60.512A Abrasion of left hand, initial encounter; S60.511A Abrasion of right hand, initial encounter; M25.562 Pain in left knee; M25.561 Pain in right knee; M25.532 Pain in left wrist; M25.531 Pain in right wrist; Y35.833A Legal intervention involving a conducted energy device, suspect injured, initial encounter; Y92.019 Unspecified place in single-family (private) house as the place of occurrence of the external cause; Z78.1 Physical restraint status | CPT/HCPCS: A0425; A0429 ==

== ENCOUNTER 2023-03-13 13:48 | Emergency (ER) | payer OTHER ==
[2023-03-13 13:59] VITALS: BP 182/125; O2SAT 98
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
== END 2023-03-13 14:50 | disposition home or self-care (01) ==
LOC: EDUNIT# → ED 13:48
DX: Z02.89 Encounter for other administrative examinations (principal); T75.4XXA Electrocution, initial encounter; Y35.831A Legal intervention involving a conducted energy device, law enforcement official injured, initial encounter; S80.212A Abrasion, left knee, initial encounter; S80.211A Abrasion, right knee, initial encounter; S60.419A Abrasion of unspecified finger, initial encounter; W19.XXXA Unspecified fall, initial encounter; M79.5 Residual foreign body in soft tissue
CPT/HCPCS: 99283

== ENCOUNTER 2023-10-19 02:18 | Emergency (ER) | payer OTHER ==
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
[2023-10-19] MEDS: SODIUM CHLORIDE 0.9% 1,000 ML IV STA ×2 (02:30→05:15)
[2023-10-19 02:44] LABS: BASOPHILS % (AUTO) 0.3 %; EOSINOPHILS # (AUTO) 0.1 10^3/uL (0.0-0.7); EOSINOPHILS % (AUTO) 0.5 %; HCT - HEMATOCRIT 40.5 % (42.0-52.0); HGB - HEMOGLOBIN 13.2 g/dL (14.0-18.0); LYMPHOCYTES # (AUTO) 1.6 10^3/uL (1.5-3.5); LYMPHOCYTES % (AUTO) 11.5 %; MEAN CORPUSCULAR HEMOGLOBIN 28.3 pg (27.0-31.0); MEAN CORPUSCULAR HGB CONC 32.6 g/dL (32.0-36.0); MEAN CORPUSCULAR VOLUME 86.7 fL (80.0-94.0); MEAN PLATELET VOLUME 11.1 fL (7.4-11.4); MONOCYTES # (AUTO) 0.8 10^3/uL (0.0-1.0); MONOCYTES % (AUTO) 5.5 %; NEUTROPHILS # (AUTO) 11.7 10^3/uL (1.5-6.6); NEUTROPHILS % (AUTO) 81.8 %; PLT - PLATELET COUNT 275 10^3/uL (130-450); RED BLOOD COUNT 4.67 10^6/uL (4.70-6.10); RED CELL DISTRIBUTION WIDTH 13.3 % (12.0-15.0); WHITE BLOOD COUNT 14.3 x10^3/uL (4.8-10.8)
[2023-10-19 03:04] LABS: MAGNESIUM 1.6 mg/dL (1.7-2.3)
[2023-10-19 03:11] LABS: ALBUMIN 4.3 g/dL (3.2-5.5); ALBUMIN/GLOBULIN RATIO 1.2 (1.0-2.2); ALKALINE PHOSPHATASE 52 IU/L (42-121); ALT ALANINE AMINOTRANSFERASE 16 IU/L (10-60); AST ASPARTATE AMINOTRANSFERASE 22 IU/L (10-42); BILIRUBIN,TOTAL 0.8 mg/dL (0.2-1.0); BUN - BLOOD UREA NITROGEN 26 mg/dL (6-20); CALCIUM 9.6 mg/dL (8.5-10.3); CARBON DIOXIDE - CO2 24 mmol/L (21-32); CHLORIDE 102 mmol/L (101-111); CK- CREATINE KINASE 511 IU/L (30-223); CREATININE 1.2 mg/dL (0.6-1.3); ETOH - ETHANOL < 10.0 mg/dL; GFR - MDRD 62 (>89); GLUCOSE 239 mg/dL (74-104); LIPASE 18 U/L (11-82); POTASSIUM 3.7 mmol/L (3.5-4.5); SODIUM 137 mmol/L (135-145); TOTAL PROTEIN 7.9 g/dL (6.4-8.9)
[2023-10-19 03:13] LABS: THYROID STIMULATING HORMONE 0.86 uIU/mL (0.34-5.60)
[2023-10-19 03:14] LABS: ACETAMINOPHEN < 0.1 ug/mL; SALICYLATE < 1.5 mg/dL
[2023-10-19] MEDS: OLANZapine ODT 5 MG TABLET TL STA ×2 (07:26→09:30)
[2023-10-19 07:48] LABS: BILIRUBIN,URINE NEGATIVE (NEGATIVE); GLUCOSE, URINE (UA) 500 mg/dL (NEGATIVE); KETONES,URINE (UA) TRACE mg/dL (NEGATIVE); LEUKOCYTE ESTERASE, URINE NEGATIVE (NEGATIVE); NITRITE,URINE NEGATIVE (NEGATIVE); OCCULT BLOOD,URINE NEGATIVE (NEGATIVE); PH,URINE 5.5 PH (5.0-7.5); PROTEIN,URINE NEGATIVE (NEGATIVE); UROBILINOGEN,URINE 0.2 (NORMAL) E.U./dL (NORMAL)
[2023-10-19 08:03] LABS: CLARITY,URINE CLEAR (CLEAR)
[2023-10-19 08:04] LABS: AMPHETAMINE SCREEN,URINE NEGATIVE (NEGATIVE); BARBITURATE SCREEN,UR NEGATIVE (NEGATIVE); BENZODIAZEPINES SCREEN, URINE NEGATIVE (NEGATIVE); BUPRENORPHINE SCREEN, URINE NEGATIVE (NEGATIVE); COCAINE SCREEN URINE NEGATIVE (NEGATIVE); METHADONE SCREEN, URINE NEGATIVE (NEGATIVE); METHAMPHETAMINES SCREEN, URINE NEGATIVE (NEGATIVE); OPIATE SCREEN, URINE NEGATIVE (NEGATIVE); OXYCODONE SCREEN, URINE NEGATIVE (NEGATIVE); THC CANNABINOID SCREEN, URINE NEGATIVE (NEGATIVE); TRICYCLIC ANTIDEPRESSANT,URINE NEGATIVE (NEGATIVE)
[2023-10-19] MEDS: DROPERIDOL 5 MG/2 ML VIAL IVP STA ×3 (09:35→20:08)
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
[2023-10-19] MEDS: ACETAMINOPHEN 500 MG TABLET PO STA (14:58)
[2023-10-19 20:30] VITALS: BP 123/69; O2SAT 97
== END 2023-10-19 20:35 ==
LOC: ED 02:18
DX: F23 Brief psychotic disorder (principal); E11.9 Type 2 diabetes mellitus without complications; Z11.52 Encounter for screening for COVID-19; Z78.1 Physical restraint status; Z79.4 Long term (current) use of insulin; Z79.84 Long term (current) use of oral hypoglycemic drugs
CPT/HCPCS: 36415; 80053; 80143; 80179; 80306; 81003; 82077; 82550; 83690; 83735; 84443; 85025; 87635; 96361; 96374; 96376; 99285; A9270; 81001; 87086